=== PATIENT | female | born 1990 | race Caucasian/White ===

== ENCOUNTER → 2024-09-12 07:21 | Outpatient (CLI) | payer OTHER, SELFPAY ==
[2024-09-12 07:53] LABS: Add Manual Diff / Slide Review NO; Basophils Absolute Auto 100 /uL (0-100); Basophils Percent Auto 1.8 % (0-2); Eosinophils Absolute Auto 100 /uL (0-450); Eosinophils Percent Auto 1.4 % (2-4); Hematocrit 39.1 % (36-46); Lymphocytes Absolute Auto 1900 /uL (1100-4500); Lymphocytes Percent Auto 34.2 % (25-40); Mean Corpuscular HGB Conc 33.3 % (30-36); Mean Corpuscular Hemoglobin 29.5 PG (26-34); Mean Corpuscular Volume 88.7 fL (80-100); Monocytes Absolute Auto 500 /uL (0-900); Monocytes Percent Auto 9.4 % (3-14); Neutrophils Absolute Auto 2900 /uL (1500-7000); Neutrophils Percent Auto 53.2 % (50-75); Platelet Count 328 X10^3/uL (150-400); Red Blood Cell Count 4.41 X10^6/uL (4.0-5.2); Red Cell Distribution Width 13.6 % (11.6-14.8); White Blood Cell Count 5.5 X10^3/uL (4.5-11.0)
[2024-09-12 08:07] LABS: HEMOLYSIS < 15 (0-50); Iron 37 ug/dL (37-170)
[2024-09-12 08:11] LABS: Alanine Aminotransferase 47 IU/L (<35); Albumin 4.1 g/dL (3.5-5.0); Albumin Globulin Ratio 1.4 (1.0-2.8); Alkaline Phosphatase 82 U/L (38-126); Aspartate Aminotransferase 49 IU/L (14-36); BUN Creatinine Ratio 20.3 (6-22); Bilirubin Total 0.5 mg/dL (0.2-1.3); Blood Urea Nitrogen 14 mg/dL (7-17); Calcium 9.4 mg/dL (8.4-10.2); Carbon Dioxide 27 mmol/L (22-32); Chloride 104 mmol/L (98-107); Cholesterol 146 mg/dL (140-199); Estimated Glomerular Filt Rate > 60 mL/min (>60); Globulin 2.9 g/dL (1.7-4.1); Glucose 95 mg/dL (70-100); HDL Cholesterol 49 mg/dL (40-60); HEMOLYSIS < 15 (0-50); LDL Cholesterol Calculated 83 mg/dL (<100); Potassium 4.7 mmol/L (3.4-5.1); Sodium 138 mmol/L (137-145); Triglycerides 68 mg/dL (35-150)
[2024-09-12 08:19] LABS: Percent Iron Saturation 13 % (15-50); Total Iron Binding Capacity 294 ug/dL (265-497); Transferrin 258 mg/dL (206-381)
[2024-09-12 08:40] LABS: TSH w/ Reflex to FT4 1.17 uIU/mL (0.47-4.68)
[2024-09-12 08:43] LABS: Ferritin 23 ng/mL (6-137)
== END ==
PROVIDERS: PCP Family Medicine; Referring Provider Family Medicine; Visit Provider Family Medicine
DX: R53.83 Other fatigue (principal); E61.1 Iron deficiency; D64.9 Anemia, unspecified; K58.9 Irritable bowel syndrome, unspecified; Z87.11 Personal history of peptic ulcer disease
CPT/HCPCS: 36415; 80053; 80061; 82728; 83540; 83550; 84443; 85025

== ENCOUNTER 2024-11-25 10:56 | Emergency (ER) | payer OTHER, SELFPAY ==
[2024-11-25 11:15] VITALS: BP 139/90; PULSE 77; RESP 16; TEMP 36.7; O2SAT 99; BMI 28.3
--- NOTE | 2024-11-25 11:19 | DI.CT.S_ITS ---
PROCEDURE: CT KIDNEY URETER BLADDER (KUB) INDICATIONS: r/o L kidney stone TECHNIQUE: Axial sections were acquired from the lung bases to the pubic symphysis. Coronal and sagittal reformats were performed. For radiation dose reduction, the following was used: automated exposure control, adjustment of mA and/or kV according to patient size. COMPARISON: None. FINDINGS: Image quality: Diagnostic. Lower Chest: A calcified medial left basilar pulmonary nodule is either a calcified granuloma or a hamartoma. URINARY: Right Kidney: Multiple punctate stones, the largest of which is approximately 3 mm. No hydronephrosis. Right Ureter: No hydroureter. Left Kidney: Multiple punctate stones, the largest of which is 3 mm. Mild hydronephrosis. A Left Ureter: Obstructed distal ureter at the ureterovesical junction by a 3 x 4 mm stone. Resultant mild hydroureter and hydronephrosis. Bladder: Normal wall thickness. No stones. ABDOMEN: Liver: No contour-deforming solid mass. Gallbladder: No radiopaque gallstones or wall thickening. Biliary ducts: No biliary dilation. Pancreas: No ductal dilation. Spleen: Size is within normal limits. Adrenal Glands: No adrenal nodules. Stomach and Bowel: Normal colonic caliber, without significant wall thickening. Peritoneum: No abnormal intraperitoneal fluid. No free air. Ventral Wall: No hernia. Abdominal Nodes: No enlarged retroperitoneal or mesenteric lymph nodes. Vessels: Aorta and inferior vena cava are normal in size. PELVIS: Pelvic Organs: Unremarkable. Pelvic Nodes: Unremarkable. Miscellaneous: No inguinal hernias are seen. Bones: Unremarkable. IMPRESSION: 1. A 3 x 4 mm calculus obstructs the left ureter at the left ureterovesical junction with resultant mild left hydronephrosis. 2. Bilateral nonobstructing renal stones. Dictated by: Christiano Brooks M.D. on 11/25/2024 at 12:21 Approved by: Christiano Brooks M.D. on 11/25/2024 at 12:24
[2024-11-25] MEDS: ONDANSETRON 4 MG/2 ML INJ IV (11:28)
[2024-11-25 11:36] LABS: Pregnancy Test Urine Negative (Negative)
[2024-11-25 11:36] LABS: Add Manual Diff / Slide Review NO; Basophils Absolute Auto 100 /uL (0-100); Basophils Percent Auto 0.7 % (0-2); Eosinophils Absolute Auto 0 /uL (0-450); Eosinophils Percent Auto 0.5 % (2-4); Hematocrit 39.1 % (36-46); Hemoglobin 13.1 g/dL (12.0-16.0); Lymphocytes Absolute Auto 1600 /uL (1100-4500); Lymphocytes Percent Auto 17.8 % (25-40); Mean Corpuscular HGB Conc 33.5 % (30-36); Mean Corpuscular Hemoglobin 29.3 PG (26-34); Mean Corpuscular Volume 87.4 fL (80-100); Monocytes Absolute Auto 400 /uL (0-900); Neutrophils Absolute Auto 6700 /uL (1500-7000); Platelet Count 275 X10^3/uL (150-400); Red Blood Cell Count 4.47 X10^6/uL (4.0-5.2); Red Cell Distribution Width 13.5 % (11.6-14.8); White Blood Cell Count 8.8 X10^3/uL (4.5-11.0)
[2024-11-25] MEDS: KETOROLAC 30 MG/ML VIAL 15 MG IV (11:36)
[2024-11-25 11:37] LABS: Appearance Urine UA Clear; Color Urine UA Orange
[2024-11-25 11:40] LABS: Bacteria Urine Few (2-10); RBC Urine 5-10/HPF (0-5/HPF); Squamous Epithelial Cell Urine 0-1 /HPF (0-5/HPF); Urine Volume Low Vol <10mL (spun); WBC Urine 5-10/HPF (0-5/HPF)
[2024-11-25 11:41] LABS: Culture Indicated Urine Specimen Cultured
[2024-11-25 11:46] LABS: Alanine Aminotransferase 37 IU/L (<35); Albumin 4.5 g/dL (3.5-5.0); Albumin Globulin Ratio 1.3 (1.0-2.8); Alkaline Phosphatase 74 U/L (38-126); Aspartate Aminotransferase 47 IU/L (14-36); Bilirubin Total 0.5 mg/dL (0.2-1.3); Blood Urea Nitrogen 12 mg/dL (7-17); Calcium 9.1 mg/dL (8.4-10.2); Carbon Dioxide 23 mmol/L (22-32); Chloride 103 mmol/L (98-107); Estimated Glomerular Filt Rate > 60 mL/min (>60); Globulin 3.5 g/dL (1.7-4.1); Glucose 111 mg/dL (70-100); HEMOLYSIS < 15 (0-50); Lipase 157 U/L (23-300); Sodium 137 mmol/L (137-145)
[2024-11-25 13:06] VITALS: PULSE 75; O2SAT 100
--- NOTE | 2024-11-25 13:32 | ED.ABDPAIN ---
HPI - Abdominal Pain General Chief Complaint: Urogenital-Female Stated Complaint: poss kidney infection Time Seen by Provider: 11/25/24 13:24 History of Present Illness HPI narrative: Patient is a healthy 34-year-old female on semaglutide, presenting today with left flank pain. Reports that she had some painful frequent urination and urgency last night took some azo ooxo-mbb-tesspks still having some left flank pain. Pain was so intense that she has thrown up. Pain has radiated around to the front no prior history of kidney stone. Related Data Home Medications Medication Instructions Recorded Confirmed multivitamin 1 tab PO DAILY 08/19/24 09/22/24 Previous Rx's Medication Instructions Recorded clindamycin phosphate 1 % lotion 1 applic topical BEDTIME #60 mL 08/19/24 (Cleocin T) semaglutide (weight loss) 0.25 0.5 mg SUBCUT QWEEK #4 mL 11/03/24 mg/0.5 mL subcutaneous pen injector cephalexin 500 mg capsule 500 mg PO BID 5 days #10 caps 11/25/24 hydrocodone 5 mg-acetaminophen 325 1 tab PO Q6H PRN pain #10 tabs 11/25/24 mg tablet ondansetron 4 mg disintegrating 4 mg PO Q8H PRN nausea and 11/25/24 tablet vomiting #10 tabs Allergies Allergy/AdvReac Type Severity Reaction Status Date / Time No Known Drug Allergies Allergy Verified 09/22/24 08:08 Patient History Medical History (Updated 11/25/24 @ 14:18 by Alma Conroy DO) Chicken pox (~1994) Acne (~2014) Anemia (~1999) History of gastric ulcer IBS (irritable bowel syndrome) (~2011) Surgical History (Updated 08/25/24 @ 20:09 by Sommer Bautista) Anesthesia History of knee surgery (~2019) Family History (Updated 08/25/24 @ 20:11 by Sommer Bautista) Grandfather Dementia Grandmother Diabetes mellitus Grandfather Prostate cancer Hypertension Grandmother Cancer Social History Smoking Status: Never smoker Smoking Status: Never smoker Exam Initial Vital Signs Initial Vital Signs: Vital Signs Temperature 98.0 F 11/25/24 11:15 Pulse Rate 77 11/25/24 11:15 Respiratory Rate 16 11/25/24 11:15 Blood Pressure 139/90 11/25/24 11:15 Pulse Oximetry 99 03/14/25 11:15 Oxygen Delivery Method Room Air 11/25/24 11:15 GENERAL: Alert well-appearing 34-year-old female HEENT: Head atraumatic,EOMI, pupils reactive, face symmetric, [moist] mucous membranes CARDIOVASCULAR: Regular rate and rhythm without murmurs, rubs or gallops. RESPIRATORY: Breath sounds equal bilaterally, no wheezes rales or rhonchi. ABDOMEN: Soft, nontender. Normoactive bowel sounds all 4 quadrants. No guarding or rebound. : Mild left CVA tenderness EXTREMITIES: Normal range of motion, no clubbing or edema. Neurovascularly intact NEUROLOGICAL: Alert and oriented x4.Normal gait and speech. SKIN: Warm, dry, no laceration, no petechiae, no rashes or lesions. Course Orders Ordered: ED Orders 11/25/24 11:19 CT kidney ureter bladder (KUB) Stat 11/25/24 11:20 Complete Blood Count AUTO DIFF Stat Comprehensive Metabolic Panel Stat Lipase Stat 11/25/24 11:21 Test Urine Stat Urinalysis and Microscopic Stat Urine Culture Stat Ondansetron HCl (Ondansetron 4 Mg/2 Ml Inj) 4 mg IV NOW PRN PRN Reason: Nausea And Vomiting Last Admin: 11/25/24 11:28 Dose: 4 mg Documented By: DINORA Ondansetron HCl (Ondansetron 4 Mg Odt) 4 mg PO NOW PRN PRN Reason: Nausea And Vomiting Discontinued Medications Ketorolac Tromethamine (Ketorolac 30 Mg/Ml Vial) 15 mg IV NOW ONE Stop: 11/25/24 11:31 Last Admin: 11/25/24 11:36 Dose: 15 mg Documented By: DINORA Vital Signs Vital signs: Vital Signs - 8 hr 11/25/24 11:15 11/25/24 13:06 Temperature 98.0 F Pulse Rate 77 75 Respiratory Rate 16 Blood Pressure 139/90 Pulse Oximetry 99 100 Oxygen Delivery Method Room Air Room Air MDM - Abdominal Pain Lab Data 11/25/24 11:20 11/25/24 11:20 Labs: Lab Results 11/25/24 11/25/24 Range/Units 11:20 11:21 WBC 8.8 (4.5-11.0) X10^3/uL RBC 4.47 (4.0-5.2) X10^6/uL Hgb 13.1 (12.0-16.0) g/dL Hct 39.1 (36-46) % MCV 87.4 (80-100) fL MCH 29.3 (26-34) PG MCHC 33.5 (30-36) % RDW 13.5 (11.6-14.8) % Plt Count 275 (150-400) X10^3/uL Neut % (Auto) 76.0 H (50-75) % Lymph % (Auto) 17.8 L (25-40) % [place] % (Auto) 5.0 (3-14) % Eos % (Auto) 0.5 L (2-4) % Baso % (Auto) 0.7 (0-2) % Neut # (Auto) 6700 (7243-3236) /uL Lymph # (Auto) 1600 (4992-1929) /uL [place] # (Auto) 400 (0-900) /uL Eos # (Auto) 0 (0-450) /uL Baso # (Auto) 100 (0-100) /uL Sodium 137 (137-145) mmol/L Potassium 4.0 (3.4-5.1) mmol/L Chloride 103 (98-107) mmol/L Carbon Dioxide 23 (22-32) mmol/L BUN 12 (7-17) mg/dL Creatinine 0.80 (0.52-1.04) mg/dL Estimated GFR > 60 (>60) mL/min BUN/Creatinine Ratio 15.0 (6-22) Glucose 111 H (70-100) mg/dL Calcium 9.1 (8.4-10.2) mg/dL Total Bilirubin 0.5 (0.2-1.3) mg/dL AST 47 H (14-36) IU/L ALT 37 H (<35) IU/L Alkaline Phosphatase 74 (38-126) U/L Total Protein 8.0 (6.3-8.2) g/dL Albumin 4.5 (3.5-5.0) g/dL Globulin 3.5 (1.7-4.1) g/dL Albumin/Globulin Ratio 1.3 (1.0-2.8) Lipase 157 (23-300) U/L Urine Color [place] Urine Appearance Clear Urine pH TNP Ur Specific [place] TNP Urine Protein TNP Urine Glucose (UA) TNP Urine Ketones TNP Urine Occult Blood TNP Urine Nitrate TNP Urine Bilirubin TNP Urine Urobilinogen TNP Ur Leukocyte Esterase TNP Urine RBC 5-10/hpf H (0-5/HPF) Urine WBC 5-10/hpf H (0-5/HPF) Ur Squamous Epith Cells 0-1 /hpf (0-5/HPF) Urine Bacteria Few (2-10) H (None) Ur Culture Indicated? Specimen cultured Vol Urine Centrifuged Low vol <10ml (spun) A Urine Test Negative (Negative) Imaging Data CT scan - abdomen/pelvis: Radiologist's Impression: PROCEDURE: CT KIDNEY URETER BLADDER (KUB) INDICATIONS: r/o L kidney stone TECHNIQUE: Axial sections were acquired from the lung bases to the pubic symphysis. Coronal and sagittal reformats were performed. For radiation dose reduction, the following was used: automated exposure control, adjustment of mA and/or kV according to patient size. COMPARISON: None. FINDINGS: Image quality: Diagnostic. Lower Chest: A calcified medial left basilar pulmonary nodule is either a calcified granuloma or a hamartoma. URINARY: Right Kidney: Multiple punctate stones, the largest of which is approximately 3 mm. No hydronephrosis. Right Ureter: No hydroureter. Left Kidney: Multiple punctate stones, the largest of which is 3 mm. Mild hydronephrosis. A Left Ureter: Obstructed distal ureter at the ureterovesical junction by a 3 x 4 mm stone. Resultant mild hydroureter and hydronephrosis. Bladder: Normal wall thickness. No stones. ABDOMEN: Liver: No contour-deforming solid mass. Gallbladder: No radiopaque gallstones or wall thickening. Biliary ducts: No biliary dilation. Pancreas: No ductal dilation. Spleen: Size is within normal limits. Adrenal Glands: No adrenal nodules. Stomach and Bowel: Normal colonic caliber, without significant wall thickening. Peritoneum: No abnormal intraperitoneal fluid. No free air. Ventral Wall: No hernia. Abdominal Nodes: No enlarged retroperitoneal or mesenteric lymph nodes. Vessels: Aorta and inferior vena cava are normal in size. PELVIS: Pelvic Organs: Unremarkable. Pelvic Nodes: Unremarkable. Miscellaneous: No inguinal hernias are seen. Bones: Unremarkable. IMPRESSION: 1. A 3 x 4 mm calculus obstructs the left ureter at the left ureterovesical junction with resultant mild left hydronephrosis. 2. Bilateral nonobstructing renal stones. Dictated by: Christiano Brooks M.D. on 11/25/2024 at 12:21 MDM Narrative Medical decision making narrative: Patient is a healthy 34-year-old female presenting today with left flank pain. No prior history of kidney stone that is radiating around to her abdomen consistent with kidney stone. CT confirms a 3 x 4 mm at the UVJ Blood work has been reviewed No leukocytosis no LEOBARDO no electrolyte abnormality Urinalysis positive for bacteria and WBCs no squamous cell At this time we will treat patient for UTI along with a kidney stone. She has no risk factors or need for urgent stent. No evidence of sepsis. I do recommend she follow up with Urology. Discharge Plan Departure Patient Disposition: Home Clinical Impression: Kidney stone on left side, UTI (urinary tract infection) Instructions: DI for Kidney Stones, DI for Urinary Tract Infection (UTI) Activity Restrictions/Additional Instructions: *You have been diagnosed with kidney stone UTI *What to do: At this time increase fluids as tolerated *Continue to take medications as directed Motrin 600 mg every 6 hours for izrf-jq-alnqiwyl pain [place] 1 tablet every 6 hours or half tablet severe pain Zofran 4 mg every 8 hours for nausea or vomiting Keflex 500 mg twice a day for 5 days *Follow up with your primary care provider in 2-3 days or call [phone] *Return to ER if you should have persistent vomiting, fever increasing pain [or] any new, worsening or concerning symptoms CONTROLLED SUBSTANCE DISCHARGE (Narcotoic/benzodiazepine/Flexeril/Phenergan) 1. You have been prescribed narcotic medications, it does have acetaminophen/Tylenol/paracetamol in it, DO NOT TAKE MORE THAN 4,00mg in 24 hours of Tylenol. TRAMADOL DOES NOT CONTAIN TYLENOL 2. Please understand that we cannot provide further refills of narcotics, benzodiazepines or controlled substances through the ED and her pain management will need to be through your provider. 3. While on these medications you cannot drive or operate heavy machinery. 4. You cannot sign legal documents or perform any duties such as this. 5. As long as you're taking opiate pain medications he should also be taking a stool softener such as Colace, Dulcolax, MiraLAX or prune juice, to help avoid constipation. Prescriptions: New hydrocodone-acetaminophen 5-325 mg tablet 1 tab PO Q6H PRN (Reason: pain) Qty: 10 0RF cephalexin 500 mg capsule 500 mg PO BID 5 Days Qty: 10 0RF ondansetron 4 mg tablet,disintegrating 4 mg PO Q8H PRN (Reason: nausea and vomiting) Qty: 10 0RF No Action multivitamin Tablet 1 tab PO DAILY clindamycin phosphate [Cleocin T] 1 % lotion 1 applic topical BEDTIME Qty: 60 2RF semaglutide (weight loss) 0.25 mg/0.5 mL pen injector 0.5 mg SUBCUT QWEEK Qty: 4 0RF Rx Instructions: administer weeks 1 through 4 of therapy Referrals: Monae Wilkerson MD [Primary Care Provider] - Stand Alone Forms: Patient Portal/API/Survey
[2024-11-25 14:10] VITALS: BP 107/57; PULSE 69; O2SAT 97
== END 2024-11-25 14:32 | disposition home or self-care (01) ==
PROVIDERS: Emergency Provider Emergency Medicine; PCP Family Medicine
DX: N20.0 Calculus of kidney (principal); N39.0 Urinary tract infection, site not specified
CPT/HCPCS: 36415; 74176; 80053; 81001; 81025; 83690; 85025; 87086; 87147; 96374; 96375; 99284; J1885; J2405

== ENCOUNTER 2024-11-29 07:31 | Emergency (ER) | payer OTHER, SELFPAY ==
[2024-11-29] VITALS (9 sets, daily range): BP systolic 104–134; BP diastolic 57–71; PULSE 60–85; RESP 18; TEMP 36.8; O2SAT 94–100; BMI 28.3
--- NOTE | 2024-11-29 07:57 | ED_ITS ---
HPI - Abdominal Pain General Chief Complaint: Urogenital-Female Stated Complaint: Severe Kidney pain, Getting worse Time Seen by Provider: 11/29/24 07:52 Source: patient Mode of arrival: Ambulatory History of Present Illness HPI narrative: Patient here with partner for increasing left flank pain. Patient has seen here 4 days ago for left UVJ stone. Has had nausea and vomiting this morning. Urinalysis negative for last visit here. Patient has never been formally diagnosed with kidney stones before until last visit here. Related Data Home Medications Medication Instructions Recorded Confirmed multivitamin 1 tab PO DAILY 08/19/24 09/22/24 Previous Rx's Medication Instructions Recorded clindamycin phosphate 1 % lotion 1 applic topical BEDTIME #60 mL 08/19/24 (Cleocin T) semaglutide (weight loss) 0.25 0.5 mg SUBCUT QWEEK #4 mL 11/03/25 mg/0.5 mL subcutaneous pen injector hydrocodone 5 mg-acetaminophen 325 1 tab PO Q6H PRN pain #10 tabs //25 mg tablet ondansetron 4 mg disintegrating 4 mg PO Q8H PRN nausea and 11/25/24 tablet vomiting #10 tabs ondansetron 4 mg disintegrating 4 mg PO Q8H PRN nausea and 11/29/24 tablet vomiting #10 tabs ondansetron 4 mg disintegrating 4 mg PO Q8H PRN nausea and 11/29/24 tablet vomiting #20 tabs oxycodone-acetaminophen 5 mg-325 1 tab PO Q4-6H PRN pain #20 tabs /18/25 mg tablet (Percocet) oxycodone-acetaminophen 5 mg-325 1 tab PO Q4-6H PRN pain #20 tabs /18/25 mg tablet (Percocet) tamsulosin 0.4 mg capsule 0.8 mg (2 x 0.4 mg) PO DAILY #14 11/29/24 caps tamsulosin 0.4 mg capsule 0.8 mg (2 x 0.4 mg) PO DAILY #14 11/29/24 caps Allergies Allergy/AdvReac Type Severity Reaction Status Date / Time No Known Drug Allergies Allergy Verified 09/22/24 08:08 Review of Systems Review of Systems Narrative: GENERAL: Negative chills, fatigue, malaise, fever, sweats. HEENT: Negative sinus pain, ear pain, sore throat RESPIRATORY: Negative dyspnea, cough CARDIOVASCULAR: Negative chest pain, palpitations GASTROINTESTINAL: Positive flank pain/vomiting, nausea, abdominal pain : Negative dysuria, frequency, hematuria MUSCULOSKELETAL: Negative muscle or bony pain SKIN: Negative rash, skin lesions NEUROLOGIC: Negative weakness, numbness ROS Unobtainable: All systems reviewed & are unremarkable except as noted in HPI and below Patient History Medical History (Updated 11/29/24 @ 09:25 by Isaias Escobar MD) Chicken pox (~1994) Acne (~2014) Anemia (~1999) History of gastric ulcer IBS (irritable bowel syndrome) (~2011) Surgical History (Updated 08/25/24 @ 20:09 by Sommer Bautista) Anesthesia History of knee surgery (~2019) Family History (Updated 08/25/24 @ 20:11 by Sommer Bautista) Grandfather Dementia Grandmother Diabetes mellitus Grandfather Prostate cancer Hypertension Grandmother Cancer Social History Smoking Status: Never smoker Smoking Status: Never smoker Exam Narrative Exam Narrative: GENERAL: in no distress, not toxic not dyspneic HEAD: Normocephalic. EYES: Pupils equal round ENT: Mucous membranes moist. NECK: Trachea midline. CARDIOVASCULAR: Regular rate and rhythm RESPIRATORY: Clear to auscultation. Breath sounds equal bilaterally. No wheezes, rales, or rhonchi. GASTROINTESTINAL: Abdomen soft, mild left lower quadrant tenderness mild left CVA tenderness no peritoneal signs no guarding no rebound. Bowel sounds are present. EXTREMITIES: No gross deformities. BACK: No flank tenderness. NEURO: AOx4. Clear speech SKIN: Warm and dry PSYCH: Not anxious, is cooperative Initial Vital Signs Initial Vital Signs: Vital Signs Pulse Rate 72 11/29/24 07:44 Blood Pressure 134/71 11/29/24 07:44 Pulse Oximetry 100 11/29/24 07:44 Course Orders Ordered: Discontinued Medications Hydromorphone HCl (Hydromorphone 1 Mg Inj) 1 mg IV NOW ONE Stop: 11/29/24 07:54 Last Admin: 11/29/24 08:07 Dose: 1 mg Documented By: RODRIGUEZ Sodium Chloride (Normal Saline 0.9%) 1,000 mls @ 1,000 mls/hr IV BOLUS ONE Stop: 11/29/24 10:23 Last Admin: 11/29/24 10:09 Dose: Not Given Documented By: RODRIGUEZ Ketorolac Tromethamine (Ketorolac 30 Mg/Ml Vial) 15 mg IV NOW ONE Stop: 11/29/24 07:54 Last Admin: 11/29/24 08:06 Dose: 15 mg Documented By: RODRIGUEZ Ondansetron HCl (Ondansetron 4 Mg/2 Ml Inj) 4 mg IV NOW ONE Stop: 11/29/24 07:54 Last Admin: 11/29/24 08:07 Dose: 4 mg Documented By: RODRIGUEZ Tamsulosin HCl (Tamsulosin 0.4 Mg Capsule) 0.8 mg PO NOW ONE Stop: 11/29/24 09:50 Last Admin: 11/29/24 10:04 Dose: 0.8 mg Documented By: RODRIGUEZ Vital Signs Vital signs: Vital Signs - 8 hr 11/29/24 07:44 11/29/24 07:44 11/29/24 07:47 Temperature 98.2 F Pulse Rate 72 80 Respiratory Rate 18 Blood Pressure 134/71 134/71 Pulse Oximetry 100 100 Oxygen Delivery Method Room Air 11/29/24 08:00 11/29/24 08:01 11/29/24 08:01 Temperature Pulse Rate 64 85 Respiratory Rate Blood Pressure 117/69 Pulse Oximetry 100 100 Oxygen Delivery Method 11/29/24 08:14 11/29/24 08:14 11/29/24 08:30 Temperature Pulse Rate 68 67 Respiratory Rate Blood Pressure 108/62 Pulse Oximetry 100 94 Oxygen Delivery Method 11/29/24 08:30 11/29/24 09:00 11/29/24 09:00 Temperature Pulse Rate 66 Respiratory Rate Blood Pressure 108/57 L 104/57 L Pulse Oximetry 99 Oxygen Delivery Method 11/29/24 09:30 11/29/24 09:30 Temperature Pulse Rate 60 Respiratory Rate Blood Pressure 113/64 Pulse Oximetry 100 Oxygen Delivery Method MDM - Abdominal Pain Lab Data 11/29/24 07:52 11/29/24 07:52 Labs: Lab Results 11/29/24 Range/Units 07:52 WBC 6.6 (4.5-11.0) X10^3/uL RBC 4.28 (4.0-5.2) X10^6/uL Hgb 12.5 (12.0-16.0) g/dL Hct 37.4 (36-46) % MCV 87.3 (80-100) fL MCH 29.2 (26-34) PG MCHC 33.5 (30-36) % RDW 13.7 (11.6-14.8) % Plt Count 283 (150-400) X10^3/uL Neut % (Auto) 64.3 (50-75) % Lymph % (Auto) 27.2 (25-40) % Cooper % (Auto) 6.1 (3-14) % Eos % (Auto) 1.8 L (2-4) % Baso % (Auto) 0.6 (0-2) % Neut # (Auto) 4300 (3248-6653) /uL Lymph # (Auto) 1800 (9269-5561) /uL Cooper # (Auto) 400 (0-900) /uL Eos # (Auto) 100 (0-450) /uL Baso # (Auto) 0 (0-100) /uL Sodium 137 (137-145) mmol/L Potassium 3.9 (3.4-5.1) mmol/L Chloride 104 (98-107) mmol/L Carbon Dioxide 22 (22-32) mmol/L BUN 14 (7-17) mg/dL Creatinine 0.85 (0.52-1.04) mg/dL Estimated GFR > 60 (>60) mL/min BUN/Creatinine Ratio 16.5 (6-22) Glucose 107 H (70-100) mg/dL Calcium 9.5 (8.4-10.2) mg/dL Total Bilirubin 0.5 (0.2-1.3) mg/dL AST 38 H (14-36) IU/L ALT 36 H (<35) IU/L Alkaline Phosphatase 72 (38-126) U/L Total Protein 7.6 (6.3-8.2) g/dL Albumin 4.3 (3.5-5.0) g/dL Globulin 3.3 (1.7-4.1) g/dL Albumin/Globulin Ratio 1.3 (1.0-2.8) Imaging Data CT scan - abdomen/pelvis: Radiologist's Impression: [address] [address] [address] Scan Report Signed Patient: Mildred Aleman MR#: [id number] : 1990 Acct:[id number] Age/Sex: 34 / F Date of Service: 11/29/24 Loc: ED Accession Number: [id number] Procedure: CT kidney ureter bladder (KUB) Ordering Provider: Isaias Escobar MD PROCEDURE: CT KIDNEY URETER BLADDER (KUB) INDICATIONS: left flank pain/kidney Stone TECHNIQUE: Axial sections were acquired from the lung bases to the pubic symphysis. Coronal and sagittal reformats were performed. For radiation dose reduction, the following was used: automated exposure control, adjustment of mA and/or kV according to patient size. COMPARISON: [facility], CT, CT KIDNEY URETER BLADDER (KUB), 11/25/2024, 11:50. FINDINGS: Image quality: Diagnostic. Lower Chest: No significant findings. URINARY: Right Kidney: Faint pericalyceal paintbrush calcifications are consistent with renal tubular acidosis. There are 2 measurable stones, each measuring 3 mm. There is no hydronephrosis. Right Ureter: No hydroureter. Left Kidney: Faint pericalyceal paintbrush calcifications are consistent with renal tubular acidosis. There are 3 measurable nonobstructing stones, the largest of which measures 2 mm. Moderate hydronephrosis. Left Ureter: A 4 mm stone at the ureterovesical junction obstructs the left ureter resulting in moderate left ureteral dilatation and hydronephrosis. This stone is not significantly different in location relative to 4 days ago. Hydronephrosis has slightly increased. Bladder: Normal wall thickness. No stones. ABDOMEN: Liver: No contour-deforming solid mass. Gallbladder: Question tiny faintly visible gallstones. Biliary ducts: No biliary dilation. Pancreas: No ductal dilation. Spleen: Size is within normal limits. Adrenal Glands: No adrenal nodules. Stomach and Bowel: Normal colonic caliber, without significant wall thickening. Peritoneum: No abnormal intraperitoneal fluid. No free air. Ventral Wall: No hernia. Abdominal Nodes: No enlarged retroperitoneal or mesenteric lymph nodes. Vessels: Aorta and inferior vena cava are normal in size. PELVIS: Pelvic Organs: Unremarkable. Pelvic Nodes: Unremarkable. Miscellaneous: No inguinal hernias are seen. Bones: Unremarkable. IMPRESSION: A 4 mm stone continues to obstruct the left ureter at the level of the left ureterovesical junction. There is increased hydronephrosis, now moderate. Findings consistent with renal tubular acidosis. Bilateral measurable nonobstructing renal parenchymal stones. Question very subtle faintly radiopaque tiny gallstones. Dictated by: Christiano Brooks M.D. on 11/29/2024 at 8:17 Approved by: Christiano Brooks M.D. on 11/29/2024 at 8:31 [facility] Narrative Medical decision making narrative: Patient here with partner for increasing left flank pain. Patient has seen here 4 days ago for left UVJ stone. Has had nausea and vomiting this morning. Urinalysis negative for last visit here. Patient has never been formally diagnosed with kidney stones before until last visit here. After history and exam, Toradol Dilaudid Zofran CBC CMP CT KUB [facility] Medical records reviewed: ER visit here 4 days ago Differential considered: Includes but not limited to pyelonephritis UTI kidney stone Lab Test results independently reviewed as above. Pertinent findings: WBC 6.6 hemoglobin 12.5 BUN 14 creatinine 0.85 GFR greater than 60 Imaging studies independently reviewed: CT KUB 4 mm left UVJ stone with hydronephrosis Consultations: 9:[address] Bañuelos, urologist, he has reviewed laboratory studies and imaging studies and medical chart from last visit. Patient did not not received Flomax. The kidney stone is ready to drop into the bladder when he reviewed today's CT scan imaging. Patient needs 0.8 mg of Flomax daily. He will follow up in the office. No surgery indicated no admission indicated. Treatments: Toradol Dilaudid Zofran normal saline Re-evaluations: 9:24 a.m.. Updated patient and spouse results. Pain is better now. Awaiting call back from Urology. 10:00 a.m.. Reviewed results my discussion with Dr. Bañuelos with patient and spouse. They agree with treatment plan. Pain is controlled. They do understand stone is likely to pass today. Return precautions reviewed. They desire discharge home. Discussion: Appropriate for discharge home. Patient will likely do better with Flomax and passed the stone. I did review this with urologist Dr. Bañuelos. Return precautions reviewed pain controlled. They desire discharge home. Diagnosis: Left ureteral stone Discharge Plan Departure Patient Disposition: Home Clinical Impression: Calculus, ureteral Instructions: DI for Kidney Stones Activity Restrictions/Additional Instructions: Your exam and laboratory studies and imaging studies are reassuring. Urology service was contacted today. I am glad you are feeling better. No driving operating machinery today or when taking prescribed pain medication. Please call provided urology office for follow up. The kidney stone she would be able past. New medication has been provided for you and refill for your pain medication has been provided as well. Return if worse if any questions or concerns. Prescriptions: New oxycodone-acetaminophen [Percocet] 5-325 mg tablet 1 tab PO Q4-6H PRN (Reason: pain) Qty: 20 0RF tamsulosin 0.4 mg capsule 0.8 mg PO DAILY Qty: 14 0RF ondansetron 4 mg tablet,disintegrating 4 mg PO Q8H PRN (Reason: nausea and vomiting) Qty: 20 0RF ondansetron 4 mg tablet,disintegrating 4 mg PO Q8H PRN (Reason: nausea and vomiting) Qty: 10 0RF oxycodone-acetaminophen [Percocet] 5-325 mg tablet 1 tab PO Q4-6H PRN (Reason: pain) Qty: 20 0RF tamsulosin 0.4 mg capsule 0.8 mg PO DAILY Qty: 14 0RF No Action multivitamin Tablet 1 tab PO DAILY clindamycin phosphate [Cleocin T] 1 % lotion 1 applic topical BEDTIME Qty: 60 2RF semaglutide (weight loss) 0.25 mg/0.5 mL pen injector 0.5 mg SUBCUT QWEEK Qty: 4 0RF Rx Instructions: administer weeks 1 through 4 of therapy hydrocodone-acetaminophen 5-325 mg tablet 1 tab PO Q6H PRN (Reason: pain) Qty: 10 0RF ondansetron 4 mg tablet,disintegrating 4 mg PO Q8H PRN (Reason: nausea and vomiting) Qty: 10 0RF Referrals: Monae Wilkerson MD [Primary Care Provider] - Isaias Bañuelos MD [Physician] - Stand Alone Forms: Patient Portal/API/Survey, Work Release Note
[2024-11-29 08:03] LABS: Add Manual Diff / Slide Review NO; Basophils Absolute Auto 0 /uL (0-100); Basophils Percent Auto 0.6 % (0-2); Eosinophils Absolute Auto 100 /uL (0-450); Eosinophils Percent Auto 1.8 % (2-4); Hematocrit 37.4 % (36-46); Hemoglobin 12.5 g/dL (12.0-16.0); Lymphocytes Absolute Auto 1800 /uL (1100-4500); Lymphocytes Percent Auto 27.2 % (25-40); Mean Corpuscular HGB Conc 33.5 % (30-36); Mean Corpuscular Hemoglobin 29.2 PG (26-34); Mean Corpuscular Volume 87.3 fL (80-100); Monocytes Absolute Auto 400 /uL (0-900); Monocytes Percent Auto 6.1 % (3-14); Neutrophils Absolute Auto 4300 /uL (1500-7000); Neutrophils Percent Auto 64.3 % (50-75); Platelet Count 283 X10^3/uL (150-400); Red Blood Cell Count 4.28 X10^6/uL (4.0-5.2); Red Cell Distribution Width 13.7 % (11.6-14.8); White Blood Cell Count 6.6 X10^3/uL (4.5-11.0)
[2024-11-29] MEDS: KETOROLAC 30 MG/ML VIAL 15 MG IV (08:06)
[2024-11-29] MEDS: ONDANSETRON 4 MG/2 ML INJ IV (08:07)
[2024-11-29] MEDS: HYDROMORPHONE 1 MG INJ IV (08:07)
[2024-11-29 08:22] LABS: Alanine Aminotransferase 36 IU/L (<35); Albumin 4.3 g/dL (3.5-5.0); Albumin Globulin Ratio 1.3 (1.0-2.8); Alkaline Phosphatase 72 U/L (38-126); Aspartate Aminotransferase 38 IU/L (14-36); BUN Creatinine Ratio 16.5 (6-22); Bilirubin Total 0.5 mg/dL (0.2-1.3); Blood Urea Nitrogen 14 mg/dL (7-17); Calcium 9.5 mg/dL (8.4-10.2); Carbon Dioxide 22 mmol/L (22-32); Chloride 104 mmol/L (98-107); Estimated Glomerular Filt Rate > 60 mL/min (>60); Globulin 3.3 g/dL (1.7-4.1); Glucose 107 mg/dL (70-100); HEMOLYSIS < 15 (0-50); Potassium 3.9 mmol/L (3.4-5.1); Sodium 137 mmol/L (137-145); Total Protein 7.6 g/dL (6.3-8.2)
[2024-11-29] MEDS: TAMSULOSIN 0.4 MG CAPSULE 0.8 MG PO (10:04)
== END 2024-11-29 10:36 | disposition home or self-care (01) ==
PROVIDERS: Emergency Provider Emergency Medicine; PCP Family Medicine
DX: N20.1 Calculus of ureter (principal); R11.2 Nausea with vomiting, unspecified
CPT/HCPCS: 36415; 74176; 80053; 85025; 96374; 96375; 99284; J1171; J1885; J2405

== ENCOUNTER → 2025-06-08 10:23 | Outpatient (CLI) | payer OTHER, SELFPAY ==
[2025-06-08 11:47] LABS: Add Manual Diff / Slide Review NO; Hematocrit 39.5 % (36-46); Hemoglobin 13.4 g/dL (12.0-16.0); Lymphocytes Absolute Auto 2100 /uL (1100-4500); Mean Corpuscular HGB Conc 33.8 % (30-36); Mean Corpuscular Hemoglobin 30.4 PG (26-34); Mean Corpuscular Volume 89.8 fL (80-100); Platelet Count 309 X10^3/uL (150-400)
[2025-06-08 12:21] LABS: Alanine Aminotransferase 45 IU/L (<35); Albumin 4.5 g/dL (3.5-5.0); Albumin Globulin Ratio 1.4 (1.0-2.8); Alkaline Phosphatase 74 U/L (38-126); Blood Urea Nitrogen 15 mg/dL (7-17); Calcium 9.5 mg/dL (8.4-10.2); Carbon Dioxide 26 mmol/L (22-32); Chloride 103 mmol/L (98-107); Estimated Glomerular Filt Rate > 60 mL/min (>60); Globulin 3.2 g/dL (1.7-4.1); Glucose 77 mg/dL (70-99); HEMOLYSIS < 15 (0-50); Potassium 4.6 mmol/L (3.4-5.1); Sodium 139 mmol/L (137-145); Total Protein 7.7 g/dL (6.3-8.2)
== END ==
PROVIDERS: PCP Family Medicine; Referring Provider Family Medicine; Visit Provider Family Medicine
DX: R79.89 Other specified abnormal findings of blood chemistry (principal); E61.1 Iron deficiency
CPT/HCPCS: 36415; 80053; 85025

== ENCOUNTER → 2025-06-15 08:51 | Outpatient (CLI) | payer OTHER, SELFPAY ==
--- NOTE | 2025-06-15 08:52 | DI.US.S_ITS ---
PROCEDURE: US ABDOMEN LIMITED INDICATIONS: ELEVATED LIVER FUNCTION TESTS TECHNIQUE: Real-time scanning was performed of the abdominal and retroperitoneal organs, with image documentation. COMPARISON: None. FINDINGS: Liver: Liver size is normal. 2 hyperechoic liver lesions. The largest is in the right liver lobe and measures 1.2 centimeter in greatest dimension. Normal echotexture and echogenicity of the liver. Gallbladder: No gallstones. No wall thickening. No pericholecystic edema. Negative sonographic Reveles's sign. Biliary ducts: Intrahepatic bile ducts are non-dilated. Extrahepatic bile duct caliber measures 4.9 mm. Normal is 6-7 mm or less in diameter, or 10 mm or less post-cholecystectomy. Pancreas: Visualized portions of the pancreas are sonographically normal. Miscellaneous: No free abdominal fluid. Right kidney: No hydronephrosis. Inferior pole simple renal cyst measuring 0.9 centimeter in greatest dimension. IMPRESSION: Indeterminate liver lesions. Further evaluation with MRI suggested. Statistically likely to be hemangiomas or focal fat in patient less than 40 years old without liver disease. Dictated by: Dustin Bae M.D. on 06/15/2025 at 10:42 Approved by: Dustin Bae M.D. on 06/15/2025 at 10:46
== END ==
LOC: US 08:52
PROVIDERS: PCP Family Medicine; Referring Provider Family Medicine; Visit Provider Family Medicine
DX: K76.9 Liver disease, unspecified (principal); R79.89 Other specified abnormal findings of blood chemistry; Z87.11 Personal history of peptic ulcer disease
CPT/HCPCS: 76705

== ENCOUNTER → 2025-07-04 09:17 | Outpatient (CLI) | payer OTHER, SELFPAY ==
--- NOTE | 2025-07-04 09:18 | DI.MRI.S_ITS ---
PROCEDURE: MR ABDOMEN LIVER PROTOCOL INDICATIONS: Indeterminate liver lesions following US TECHNIQUE: Coronal HASTE, axial 2D FLASH in- and [id number]; axial breath-hold T2 FSE. Dynamic axial VIBE during the administration of contrast; post-contrast coronal VIBE or 2D FLASH with fat saturation from the hepatic dome to the iliac crests. Optional diffusion weighted imaging and ADC may be performed. COMPARISON: [facility], US, US ABDOMEN LIMITED, 06/15/2025, 9:32. FINDINGS: Image quality: Diagnostic. Lung bases: Unremarkable. Liver: The previously described hyperechoic liver lesions correspond to benign hemangiomas. Largest measures 1.2 centimeters in segment 6 of the liver (series 20, image 27). No significant steatosis. Gallbladder: No gallstones or wall thickening. Biliary ducts: Very mild intrahepatic biliary dilation, without ductal irregularity. Pancreas: No ductal dilation. Spleen: Size is within normal limits. Adrenal Glands: No adrenal nodules. Kidneys and Ureters: No hydronephrosis. No solid mass. No complex renal cystic lesion which requires follow up. Stomach and Bowel: Normal colonic caliber, without significant wall thickening. Peritoneum: No abnormal intraperitoneal fluid. No free air. Ventral Wall: No hernia. Abdominal Nodes: No retroperitoneal or mesenteric adenopathy by size criteria. Vessels: Aorta and inferior vena cava are normal in size. Bones: No aggressive osseous abnormality. IMPRESSION: The previously described liver lesions correspond to benign liver hemangiomas. There is very mild intrahepatic biliary dilation, abnormal in this age group. In the setting of elevated liver enzymes in the absence of hepatic steatosis, findings may be incidental but could also represent early primary sclerosing cholangitis. Recommend GI referral. Dictated by: Rich Gutierrez M.D. on 07/04/2025 at 11:16 Approved by: Rich Gutierrez M.D. on 07/04/2025 at 11:22
== END ==
LOC: MRI 09:18
PROVIDERS: PCP Family Medicine; Referring Provider Family Medicine; Visit Provider Family Medicine
DX: D18.03 Hemangioma of intra-abdominal structures (principal); R93.2 Abnormal findings on diagnostic imaging of liver and biliary tract
CPT/HCPCS: 74183; A9579